=== PATIENT | female | born 1990 | race African-American/Black ===

== ENCOUNTER 2019-07-03 06:55 | Emergency (ER) | payer BC ==
[~2019-07-03] VITALS: Ht 167.6 cm; Wt 68.5 kg
[~2019-07-03 06:55] MED LIST: IBUP-1542 PO
[2019-07-03 07:00] VITALS: Ht 167.6 cm; Wt 68.5 kg
[2019-07-03] MEDS ORDERED: IBUPROFEN 600 MG TAB PO ONE (07:30)
== END 2019-07-03 08:22 | disposition home or self-care (01) ==
LOC: FTE 06:55
DX: S83.92XA Sprain of unspecified site of left knee, initial encounter (principal); W01.0XXA Fall on same level from slipping, tripping and stumbling without subsequent striking against object, initial encounter; Y92.9 Unspecified place or not applicable
CPT/HCPCS: 73562; 81025; Z7502; Z7610